=== PATIENT | female | born 1935 | race Caucasian/White ===

== ENCOUNTER → 2016-11-06 | Outpatient (CLI) | payer MEDICARE, OTHER ==
[~2016-11-06] MED LIST: ACET325T9 PO; BENZ9.352 MM; CHOL2000 PO; CHOL4POW2 PO; CLON0.2T PO; CRAN3875 PO; DICL100G7 TP; FENT1PAT21 TD; GABA-585 PO; LISI10TA2 PO; MAG360OR24 PO; MORP60TA PO; ONDA4TAB12 PO; SALI44.3 MM; VITA1CAP11 PO; ZOLE5INF IV; [UNRECOGNIZED DRUG - CODE] PO
--- NOTE | 2016-11-07 03:08 | PAIN ---
DATE OF SERVICE: 11/06/2016 INITIAL CONSULTATION FOR PAIN CLINIC CHIEF COMPLAINT: All over body pain, mostly in the low back and legs as well as the arms. The patient with history of multiple sclerosis and multiple muscular complaints as well. HISTORY OF PRESENT ILLNESS: The patient is an 81-year-old female, presents with history of pain for many years. The patient reports it is mostly in the back and mostly in the legs, also in the arms with burning sensation and pain, worse at night, but also present during the day. The patient has been on MS Contin 60 mg q. 12 hours as well as Duragesic patch she wears 100 mcg every 3 days, also taking Neurontin 100 mg morning and evening. The patient reports she is still having significant pain, especially at night with burning pain, waking her up throughout the night. She has been taking Extra Strength Tylenol through the night, but does not decrease her pain. To a significant extent, she is losing sleep and reports that she is quite frustrated that the pain is not relieved. The patient reports it is a constant, sharp, stabbing, shooting, throbbing, radiating with numbness and tingling, cramping, aching, burning, worse at night, waking herself from sleep at least 5 times at night. The patient reports that she is having difficulty with ambulation as well secondary to the pain, but also from multiple sclerosis etiologies. She uses a scooter, walker, or wheelchair and is in a wheelchair today. She has had physical therapy. She is also doing exercises currently as the physical therapy has done currently as well. It helps keep her mobile she feels, but does not decrease the pain significantly. The patient reports her disability rating from 0 to 10, is a 7 with self-care and recreational factors, and a 10 with life support activities, especially sleeping. The patient reports she avoids social activity because of the pain as well. PAST MEDICAL HISTORY: Significant for hypertension, cataracts, diverticulosis, dysphasia, multiple sclerosis, restless legs syndrome, osteoporosis. PAST SURGICAL HISTORY: Previous surgeries include lumbar surgery. She is unsure of the dates. CURRENT MEDICATIONS: Extensive. The patient does have a complete list in her chart which is well documented. Significant pain medications are MS Contin at 60 mg twice daily, fentanyl patch 100 mcg q. 72 hours, Neurontin 100 mg q. 12 hours, Voltaren gel as necessary ____ times daily, Tylenol Extra Strength 500 mg 2 p.r.n. FAMILY HISTORY: Significant for pancreatic cancers. SOCIAL HISTORY: The patient does not drink alcohol, does not smoke, and does not use any illegal or illicit drugs or other substances. The patient has a sister who lives at the [facility] in [place], [place] currently. REVIEW OF SYSTEMS: The patient's review of systems is positive for those items mentioned in history of present illness. All systems reviewed and otherwise negative. It is complete, full and well documented on the patient's chart. PHYSICAL EXAMINATION: VITAL SIGNS: Today, the blood pressure is 119/59, pulse 74, respirations 18, temperature 97.8 degrees Fahrenheit, height is 61 inches, weighs 126 pounds. GENERAL: The patient is awake, alert, oriented, appropriate, very pleasant demeanor. HEENT: Shows normocephalic, atraumatic. Extraocular movements are intact, symmetrical. The patient is wearing eyeglasses. Oral cavity: Mucous membranes are moist and pink. Dentition is intact. NECK: Shows anterior throat supple without palpable lymphadenopathy noted. Swallow reflex is symmetrical. Neck shows good rotational motion both laterally as well as extension and flexion without significant difficulty. CHEST: Shows normal on inspection. Breath sounds are clear to auscultation bilaterally. HEART: Shows S1 and S2 clear. ABDOMEN: Soft, nontender, nondistended. No palpable organomegaly is noted. No rebound or guarding demonstrated. BACK: The patient's back shows spine grossly midline. Slight exaggeration of thoracic kyphosis and some flattening of lumbar lordotic curvature. Lumbar paraspinous muscle shows some moderate tenderness with palpation bilaterally throughout the upper, middle and lower distribution of paraspinous muscles, but without radiation. ____ significant tenderness with rotation greater than 10 degrees right and left as well as extension greater than 10 degrees, forward flexion at about 45 degrees without significant pain reported. No tenderness over the sacrum or sacroiliac regions. Lower extremities show deep tendon reflexes at 1+ and the patellar and tendo calcaneus tendons are equal. Motor exam is approximately 4 on a scale of 5 with dorsiflexion and extension. Quadriceps and hamstring flexion is about 3 on a scale of 5, but is symmetrical bilaterally with the lower extremities. Peripheral pulses are 1+ posterior tibial and dorsalis pedis pulses. No peripheral edema is noted. No clubbing, no cyanosis. Lower extremities are warm and dry to touch, equal in color and appearance. Upper extremities show deep tendon reflexes 2+ in the biceps and triceps tendons. Motor exam is strong with 5/5 supervisor mapping strength. Biceps and triceps flexion approximately 4/5, but equal and symmetrical. The patient is able to stand, has difficulty rising from a sitting position, is indeed in a wheelchair on initial presentation today. The patient has significant difficulty, however, ambulating and she has a walker which is attached to the back for her wheelchair that she carries with her. She dependent on this ____ has a significant shuffling gait. IMPRESSION: This is an 81-year-old female with: 1. Long history of multiple sclerosis related pain, also previous lumbar surgery and radicular qualities in some of the pain in her lower extremities as well. 2. Medication management as noted. 3. Multiple sclerosis. 4. Hypertension. PLAN: Options were discussed with the patient at length including medication management and we will change her MS Contin from 60 mg. We will add 15 mg to make a total of 75 mg q. 12 hours, maintain her Duragesic patch at 100 mcg q. 72 hours, add hydrocodone at 5 mg to take while awake on a q. 4-6 hours p.r.n. basis, also increased Neurontin to 200 mg in morning and afternoon and then 300 mg at night to see if this may help with some of her neuropathic pain. The patient will follow up in approximately 1 month or sooner as necessary, was given instruction as well as side effects to be aware with the medications. Note was given to the [facility] as well describing in detail the changes in medication regimen. SASCHA LUND MD DR: HAILEE/milton JOB#: [id number] / [id number] ecc , Dr. Hidalgo
== END | disposition home or self-care (01) ==
LOC: PNCL 09:34
PROVIDERS: ATTEND Anesthesiology
DX: M54.5 Low back pain (principal); G35 Multiple sclerosis
CPT/HCPCS: G0463

== ENCOUNTER → 2016-12-12 | Outpatient (CLI) | payer MEDICARE, OTHER ==
[~2016-12-12] MED LIST changes: +GABA-587 PO; +MORP15TA3 PO
--- NOTE | 2016-12-13 03:57 | PAIN ---
DATE OF SERVICE: DIAGNOSES: 1. Multiple sclerosis related pain. 2. Lumbar radiculopathy with post-lumbar laminectomy syndrome. HISTORY OF PRESENT ILLNESS: The patient is an 81-year-old female who returns for followup status post medication management. On her last visit, we had changed her MS Contin from 60 mg to 75 mg with 60 and 15 mg put together maintaining her Duragesic patch and also had added hydrocodone for breakthrough pain and increased her gabapentin from 100-200 during the day, in the morning and afternoon and 300 at night. The patient reports that her pain during the day is much better, about 4 on a scale of 10, but at night, it can be as high as a 10 on a scale of 10. She is still waking at least 2-3 times at night with burning pain in the bilateral lower extremities, mostly in the thighs, which she reports is less frequent than she had, but still significant pain at night. The patient reports ____ from 4-5 on a scale of 10, to 10 at night with burning and aching pain in the leg itself, some in the bender machine as well, but mostly worse in the evening and at night. The patient reports otherwise no side effects with the medications and is doing well, tolerating them. The pain medication seems to be well tolerated. She reports no side effects from that and no constipation, no itching, nausea, vomiting or memory loss and her nurses provided some notes as well, reflecting this also. PHYSICAL EXAMINATION: VITAL SIGNS: The patient on physical exam shows blood pressure 118/51, pulse 71, respirations 18, and temperature is 98.1 degrees Fahrenheit. GENERAL: The patient is awake, alert, oriented, appropriate, very pleasant demeanor. HEENT: Shows normocephalic and atraumatic. Extraocular movements are intact, symmetrical. Oral cavity, mucous membranes moist and pink. Dentition is intact. NECK: Shows anterior throat supple. CHEST: Shows breath sounds clear to auscultation bilaterally. HEART: Shows S1 and S2 clear. No murmurs auscultated. ABDOMEN: Soft, nontender, and nondistended. No palpable organomegaly is noted. BACK: Shows spine grossly midline, some flattening of lumbar lordotic curvature and some mild increase in thoracic kyphotic curvature. Well healed surgical scar is noted in the lumbar distribution. EXTREMITIES: Lower extremities showed deep tendon reflexes 1+ in the patellar tendons. Motor exam is approximately 4 on a scale of 5, but is equal and symmetrical with dorsiflexion, extension, quadriceps and hamstring flexion. PLAN: Options were discussed with the patient and the patient's old chart was reviewed as her current medication regimen updated, current review of systems updated today as well and we will recommend changing the Neurontin to 200 mg every morning and afternoon and 400 mg at night, also maintain MS Contin at 75 mg as combination 60 mg plus 15 mg tablet at night to maintain her Duragesic patch and maintain the hydrocodone, which will be taken about an hour prior to her MS Contin dose at night, which may help her for some better sleep as well. The patient is willing to try this, would like to increase the gabapentin as well. Notes were given to her nursing care facility and the patient will follow up in approximately 4 weeks or sooner if necessary. The patient was given instruction as well as side effects to be aware with the medications as well as activity level during the day ____ she can tolerate it and follow up as scheduled. SASCHA LUND MD DR: HAILEE/milton JOB#: [id number] / [id number]
== END | disposition home or self-care (01) ==
LOC: PNCL 09:27
PROVIDERS: ATTEND Anesthesiology
DX: M54.16 Radiculopathy, lumbar region (principal); M96.1 Postlaminectomy syndrome, not elsewhere classified; G35 Multiple sclerosis
CPT/HCPCS: G0463

== ENCOUNTER → 2017-01-05 | Outpatient (CLI) | payer MEDICARE, OTHER ==
--- NOTE | 2017-01-05 22:40 | PN ---
DATE: 01/05/2017 DIAGNOSES: 1. Multiple sclerosis related pain. 2. Lumbar radiculopathy with post-lumbar laminectomy syndrome. HISTORY OF PRESENT ILLNESS: The patient is an 81-year-old female who returns for followup status post medication management with both MS Contin, also hydrocodone and Neurontin. We have been altering her doses to some extent, trying to get her some better sleep as she has been having some significant pain at night. The patient returns today reporting that she is doing much better with about 80% improvement on her estimation about pain in the back and lower extremities, again much better at night, she is sleeping better through the night, not consistently through the night, but she is not awakening in pain ____ crying anymore, she reports and she is very pleased with this. The patient reports that the Neurontin level, higher at night, seems to be helping her sleep as well and the medications of MS Contin increase seem to help also. The patient reports she is having some abdominal pain and cramping, seems to be associated perhaps with some coffee consumption and we will try and have her decrease that as well as change decaffeinated coffee and see if this helps her abdominal cramping. This gets better when she eats a meal. The patient reports otherwise her pain is 6 on a scale of 10. No new motor or sensory deficits, no side effects with the medications. PHYSICAL EXAMINATION: VITAL SIGNS: The patient's blood pressure is 83/35, pulse is 83, respirations are 18, temperature 97.8 degrees Fahrenheit, and weight is 119 pounds. GENERAL: The patient is awake, alert, oriented, appropriate, very pleasant demeanor sitting upright in her wheelchair. HEENT: Head shows normocephalic and atraumatic. The patient wears eye glasses. Extraocular movements are intact and symmetrical. Oral cavity, mucous membranes moist and pink. NECK: Shows anterior throat supple without palpable lymphadenopathy noted. Swallow reflex is symmetrical. CHEST: Shows normal on inspection. Breath sounds clear to auscultation bilaterally. HEART: Shows S1 and S2 clear. ABDOMEN: Soft, nontender, and nondistended. No palpable organomegaly is noted. No rebound or guarding demonstrated. BACK: The patient's back shows spine grossly midline. Well healed surgical scar is noted in the lumbar distribution with some flattening of lumbar distribution curvature. Lumbar paraspinous muscle shows some moderate tenderness with palpation bilaterally but without radiation. EXTREMITIES: Lower extremities showed deep tendon reflexes 1+ in the patellar and tendo calcaneus tendons. Motor exam is approximately 4 on a scale of 5, but symmetrical with quadriceps, hamstrings, dorsiflexion and extension bilaterally. Options were discussed with the patient and the patient's old chart was reviewed as her current medication regimen updated. Current review of systems updated today as well. We will change hydrocodone to 7.5 mg from 5 mg, maintain the MS Contin at 75 mg total with combination 60 mg plus 15 mg as prescribed, also maintain her gabapentin at 200 mg in morning and afternoon and 400 mg at night and again change the coffee to decaffeinated status to see if this may help some of her abdominal cramping that she is having around mealtimes. The patient will follow up in approximately 4 weeks, was counseled as to medication regimen as well as side effects to be aware of, as well as her impregnator helper who accompanied her to visit today as well. SASCHA LUND MD DR: HAILEE/milton JOB#: [id number] / [id number]
== END | disposition home or self-care (01) ==
LOC: PNCL 09:30
PROVIDERS: ATTEND Anesthesiology
DX: G35 Multiple sclerosis (principal); M54.16 Radiculopathy, lumbar region; M96.1 Postlaminectomy syndrome, not elsewhere classified
CPT/HCPCS: G0463

== ENCOUNTER → 2017-02-02 | Outpatient (CLI) | payer MEDICARE, OTHER ==
[~2017-02-02] MED LIST changes: +BUPIVACAINE MPF 0.25% 10 ML VIAL. ONE; +HYDR-2762 PO; +methylPREDNISolone ACETATE 40 MG/ML VIAL. ONE
--- NOTE | 2017-02-03 02:31 | PN ---
DATE: 02/02/2017 PROGRESS NOTE FOR PAIN CLINIC DIAGNOSES: 1. Post-lumbar laminectomy syndrome with lumbar radiculopathy. 2. Multiple sclerosis related pain. HISTORY OF PRESENT ILLNESS: The patient is an 81-year-old female who returns for followup status post medication management with both MS Contin and hydrocodone, also the patient is taking gabapentin. We had slowly titrated this up to a level where she is tolerating this taking 200 mg in the morning and at noon and 400 mg at night as she was having some significant pain complaints waking her from sleep. This is going on for several months. The patient is now taking 2 tablets of gabapentin in the morning and noon and 4 tablets to make 400 mg at night, reports she is sleeping much better, does not remember having any pain during the night or awakening her from sleep. She reports she still gets up and uses the bathroom about 2-3 times a night and does not recall having pain when she is doing this or recall having been up to the bathroom sometimes at all. The patient reports that during the day though, she is alert, she is awake, she is not tired or drowsy and feels very alert and appropriate. The patient is also taking MS Contin, a combination of 60 and 15 mg, together makes 75, take this q. 12 hours and hydrocodone 7.5 mg, which we had increased from 5 mg on her previous visit q.4 hours on a p.r.n. basis and is taking this about 3 times a day on average. The patient reports no new motor or sensory deficits, no new side effects with the medication, no constipation, nausea, vomiting, itching or drowsiness with her pain medication or gabapentin at this time. The patient reports still some pain in the low back and the bilateral anterior thighs, but only generally with standing or walking. She is using a motorized wheelchair to get around most times. PHYSICAL EXAMINATION: VITAL SIGNS: Today, blood pressure is 142/68, pulse 76, respirations 20, temperature 97.8 degrees Fahrenheit. GENERAL: The patient is awake, alert, oriented, appropriate, has a very pleasant demeanor. HEENT: Shows normocephalic, atraumatic. The patient wears eyeglasses. Extraocular movements are intact and symmetrical. Oral cavity, mucous membranes are moist and pink. NECK: Shows anterior throat supple. Swallow reflex is symmetrical. CHEST: Shows normal on inspection. Breath sounds are clear to auscultation bilaterally. HEART: Shows S1 and S2 clear. No murmurs auscultated. ABDOMEN: Soft, nontender, nondistended. BACK: Shows spine grossly in the midline, well-healed surgical scar is noted in the lumbar distribution with some flattening of lumbar lordotic curvature and some moderate tenderness with palpation in the lower lumbar distribution bilaterally, but only diffusely without radiation. The patient's upper extremities show significant tenderness and she complains of pain in the area on the lateral and posterior aspect of the upper arm with abduction of the shoulder most noticeably and with posterior displacement of the shoulder. On inspection shows normal muscle girth with palpation in the inferior aspect and distal aspect of the insertion of the deltoid on to the humerus. In the lateral aspect of the deltoid and slightly into the posterior deltoid she has very firm, very tender area on the insertion site itself without any palpable masses or discoloration, no fluctuance, no other abnormalities. Left side is normal without pain with palpation in any of the deltoid regions. Neck shows full rotational motion with passive rotational motion of the right shoulder. The patient has very little pain at all with active rotation; however, with abduction at 90 degrees and posterior displacement, has significant pain in the same region consistent with a bursitis type pain in this region. Options were discussed with the patient. The patient's old chart was reviewed as her current medication regimen and updated. Current review of systems updated today as well. We will proceed with a trigger point injection in the right lateral inferior deltoid. Risks were discussed including but not limited to bleeding, infection, possibility of intravascular injection sequelae, spread of local anesthetic and numbness, side effects of steroid medication and poor results regarding pain control. The patient understands and wishes to proceed. The patient will return to the clinic in approximately 2 months or sooner if necessary. Given refill prescriptions for MS Contin, hydrocodone as well as gabapentin, all again with instructions, side effects to be aware of. Also, note written for the patient's living facility regarding her visit today and her medication regimen and this was discussed with her caregiver who was present at her visit today as well. DIAGNOSIS: Myofascial pain, right lateral deltoid. PROCEDURE: Trigger point injection, right lateral deltoid. Medications 2 mL of 0.25% bupivacaine and 40 mg Depo-Medrol total under sterile prep and drape using local anesthetic. CONDITION AT DISCHARGE: Stable. The patient tolerated the procedure well, had no complications. SASCHA LUND MD DR: HAILEE/milton JOB#: [id number] / [id number]
== END | disposition home or self-care (01) ==
LOC: PNCL 10:43
PROVIDERS: ATTEND Anesthesiology
DX: M79.1 Myalgia (principal)
CPT/HCPCS: 20552; J1030; J3490

== ENCOUNTER → 2017-05-22 | Outpatient (CLI) | payer MEDICARE, OTHER ==
[~2017-05-22] MED LIST changes: +DICL100G18 TP; -DICL100G7 TP
--- NOTE | 2017-05-22 12:12 | PAIN ---
DATE OF SERVICE: 05/22/2017 PROGRESS NOTE FOR PAIN CLINIC DIAGNOSES: 1. Multiple sclerosis related pain. 2. Lumbar radiculopathy with post-lumbar laminectomy syndrome. 3. Myofascial pain. HISTORY OF PRESENT ILLNESS: The patient is an 81-year-old female who returns for followup status post medication management with both MS Contin and hydrocodone and also gabapentin. The patient reports she is doing very well with this, has been sleeping much better at night without the pain that she has had previously. Her chief complaint is pain in the right shoulder, she had previously as well, which was much better after trigger point injection in January of this year, but is returning now. The patient is unsure why it is returning. She is right handed, does not feel that she has her arm or strained it or lifted anything heavy etc. The patient reports no new motor or sensory deficits. Again, no side effects with the medication. Reports about a 75% to 80% improvement with the medications alone. The patient rates her pain at a 10 on a scale of 10, it is worse in the right shoulder, otherwise it is a 5-6 on a scale of 10, it is burning, sharp, aching in the low back and bilateral lower extremities, but again much better with her medication. PHYSICAL EXAMINATION: VITAL SIGNS: The patient's blood pressure 105/60, pulse 67, respirations 18, temperature 98.1 degrees Fahrenheit. GENERAL: The patient is awake, alert, oriented, appropriate, very pleasant demeanor. HEENT: Shows normocephalic, atraumatic. The patient wears eyeglasses. Extraocular movements are intact and symmetrical. Oral cavity, mucous membranes are moist and pink. Dentition is intact. NECK: Shows anterior throat supple without palpable lymphadenopathy noted. Swallow reflex is symmetrical. CHEST: Shows normal on inspection. Breath sounds are clear to auscultation bilaterally. HEART: Shows S1 and S2 clear. No murmurs auscultated. ABDOMEN: Soft, nontender, nondistended. No palpable organomegaly noted. No rebound or guarding demonstrated. BACK: Shows spine grossly midline. Normal appearing thoracic kyphosis and flattening of lumbar lordotic curvature. Well-healed surgical scar noted. Lumbar paraspinous muscle shows some mild tenderness with palpation, but only diffusely in the upper, middle and lower distribution of the paraspinous muscles. No tenderness over the sacrum or sacroiliac regions. The patient shows good rotational motion both laterally as well as extension and flexion. EXTREMITIES: The patient's lower extremities showed deep tendon reflexes 1+ in the patellar and tendo calcaneus tendons. Motor exam is approximately 4 on a scale of 5, but equal and symmetrical bilaterally. Upper extremities show tenderness over the right deltoid in the anterior aspect and some in the area of the biceps tendon insertion on the right side, very firm rope-like musculature in the anterior deltoid, not present on the lateral or the posterior deltoid on the right side. The left side is supple without tenderness. The patient shows good pre sales systems engineer strength rated at 5/5 bilaterally as is biceps and triceps flexion with some pain reported with biceps flexion on the right in the shoulder itself anteriorly. Peripheral pulses are 2+ in the radial distribution. No peripheral edema is noted. No clubbing or cyanosis in the upper extremities. Options were discussed with the patient and the patient's old chart was reviewed as her current medication regimen updated. Current review of systems updated today as well. We will proceed with a right-sided deltoid trigger point injection. Risks were discussed including but not limited to bleeding, infection, possibility of intravascular injection sequelae, spread of local anesthetic and numbness, side effects of steroid medication and poor results regarding pain control. The patient understands and wishes to proceed. The patient also given refill prescriptions for MS Contin 60 mg plus 15 to make a total of 75 q. 12 hours, hydrocodone 7.5 mg for breakthrough pain and gabapentin at 400 mg in the evening, 200 mg in the morning and noon. The patient was given instructions as well as side effects to be aware with each of medications. Also gave progress note for patient's [facility] where she resides and her nursing care there with a progress note and instructions with her medications as well. The patient will follow up in approximately 2 months or sooner as necessary, was given instructions as well as side effects to be aware with medications. DIAGNOSIS: Myofascial pain, right deltoid. PROCEDURE: Trigger point injection right anterior deltoid using local anesthetic under sterile prep and drape. MEDICATION INJECTED: A total of 2 mL of 0.25% bupivacaine and 40 mg of Depo-Medrol. CONDITION AT DISCHARGE: Stable. The patient tolerated procedure well, had no complications. SASCHA LUND MD DR: Ciaran JOB#: [id number] / [id number]
== END | disposition home or self-care (01) ==
LOC: PNCL 09:10
PROVIDERS: ATTEND Anesthesiology
DX: M79.1 Myalgia (principal); M54.16 Radiculopathy, lumbar region; M96.1 Postlaminectomy syndrome, not elsewhere classified; Z88.2 Allergy status to sulfonamides
CPT/HCPCS: 20552; J1030; J3490

== ENCOUNTER → 2017-07-17 | Outpatient (CLI) | payer MEDICARE, OTHER ==
[~2017-07-17] MED LIST changes: -BUPIVACAINE MPF 0.25% 10 ML VIAL. ONE; -methylPREDNISolone ACETATE 40 MG/ML VIAL. ONE
--- NOTE | 2017-07-17 12:51 | PAIN ---
DATE OF SERVICE: 07/17/2017 DIAGNOSES: 1. Multiple sclerosis-related pain. 2. Lumbar radiculopathy with post-lumbar laminectomy syndrome. 3. Myofascial pain. HISTORY OF PRESENT ILLNESS: The patient is an 81-year-old female who returns for followup status post medication management with both MS Contin 60 and 15 mg to make 75 mg total with hydrocodone 7.5 mg for breakthrough pain. The patient is also wearing a 100 mcg fentanyl patch every 3 days. The patient returns today reporting that she still has some significant pain in the low back and bilateral lower extremities, also in the right shoulder. We had performed a trigger point on the deltoid on the right side last time and she reports this helped temporarily, but the pain returned fairly quickly. The patient reports now the pain is mostly in the mid back, low back and leg. It is sharp, burning, cramping, on and off, rated as 7 on a scale of 10. It is worst as 6 on its least. The patient reports it awakens her from sleep occasionally, but not every night. She can usually reposition or get out of bed and change positions. She is in an assisted living facility, has her nurse come and help her in the evenings to reposition and she reports she is able to get back to sleep after this. The patient reports doing well with her medications. No significant side effects. With about a 70%-75% improvement overall with some dry mouth recently, but no constipation, no dizziness, itching or nausea reported as well. PAST MEDICAL HISTORY: Significant for hypertension, cataracts, diverticulosis, multiple sclerosis, restless leg syndrome, dysphagia, osteoporosis. PREVIOUS SURGERIES: Include lumbar laminectomy only. MEDICATIONS: The patient's medications were reviewed and updated today. ALLERGIES: The patient is allergic to SULFA. FAMILY HISTORY: Significant for pancreatic cancer. SOCIAL HISTORY: Significant for no smoking, no drinking. The patient lives in [facility] in [place], [place] currently, with assisted living arrangements. PHYSICAL EXAMINATION: VITAL SIGNS: Today, blood pressure 124/45, pulse 63, respirations 16, temperature 98.1 degrees Fahrenheit. Height is 5 feet 3 inches, weight is 131 pounds. GENERAL: The patient is awake, alert, oriented, appropriate, very pleasant demeanor. HEENT: Shows normocephalic, atraumatic. Extraocular movements are intact, symmetrical. Oral cavity, mucous membranes are moist and pink. Dentition is intact. NECK: Shows anterior throat supple without palpable lymphadenopathy noted. Swallow reflex is symmetrical. CHEST: Shows normal on inspection. Breath sounds clear to auscultation bilaterally. HEART: Shows S1 and S2 clear. No murmurs auscultated. ABDOMEN: Soft, nontender, nondistended. No palpable organomegaly. No rebound or guarding demonstrated. BACK: Shows grossly midline spine with a well-healed surgical scar noted in the lumbar distribution in midline. There is some mild flattening of lumbar lordotic curvature. Thoracic kyphotic curvature is normal in appearance, slightly exaggerated. Lumbar paraspinous muscle shows some moderate tenderness with palpation in the upper, middle and lower distribution of paraspinous muscles, but only diffusely and without specific radiation. No tenderness over the spinous processes, sacrum or sacroiliac regions. The patient shows good rotational motion of lumbar spine, both laterally as well as extension and flexion without significant difficulty. The patient's upper extremities show some mild tenderness over the anterior right deltoid, but without significant palpable trigger point region on exam today without radiation. Options were discussed with the patient. At this time, the patient's old chart was reviewed. Her current medication regimen updated. Current review of systems updated today as well. We will refill the patient's medications, MS Contin, both 60+15 mg to make 75 mg total, also hydrocodone 7.5 mg for breakthrough pain. Also, try Medrol Dosepak in the meantime. She will continue with gabapentin as well. The patient was given 2-month prescription refills for each of these with instructions, side effects to be aware of these medications discussed with both she and her caregiver, who is with her today as well. The patient was given written progress note reports for her assisted living facility, also with the medications to be taken, the Medrol Dosepak to be taken with food as well. The patient will return to clinic in approximately 2 months or sooner if necessary. SASCHA LUND MD DR: HAILEE/milton JOB#: [id number] / [id number]
== END | disposition home or self-care (01) ==
LOC: PNCL 09:35
PROVIDERS: ATTEND Anesthesiology
DX: M54.16 Radiculopathy, lumbar region (principal); I10 Essential (primary) hypertension; M81.0 Age-related osteoporosis without current pathological fracture; G35 Multiple sclerosis; G25.81 Restless legs syndrome; M25.511 Pain in right shoulder; M79.1 Myalgia; R68.2 Dry mouth, unspecified
CPT/HCPCS: G0463

== ENCOUNTER → 2017-09-11 | Outpatient (CLI) | payer MEDICARE, OTHER ==
--- NOTE | 2017-09-11 23:17 | PAIN ---
DATE OF SERVICE: 09/11/2017 PROGRESS NOTE FOR PAIN CLINIC DIAGNOSES: 1. Multiple sclerosis radial pain. 2. Lumbar radiculopathy with post-lumbar laminectomy syndrome. 3. Myofascial pain. HISTORY OF PRESENT ILLNESS: The patient is an 82-year-old female who returns for followup status post medication management with both Duragesic patches, MS Contin and hydrocodone for breakthrough pain, also gabapentin, which reports she is doing very well with each of these, except for the gabapentin she feels that the morning dose is making her very groggy and less sharp during the morning hours. The patient was speaking to her sister on the phone and she reported that she was not responding well to her questions, not answering them quickly or sharply and feels that the gabapentin has been responsible for this only in the mornings. The patient reports otherwise doing fairly well. Still has some legs aching worse at night, but is sleeping through the night now, but according to her reports still some pain in the back of the legs, which is manageable and fairly well controlled with medications about 80% improvement at this time. The patient reports no side effects from the medications. She reports pain at 8 on a scale of 10 at its worse, 5 on average, 5 at its least, and is a 5 today. The patient reports it is off and on over the back and the legs, aching, sharp and burning, but again off and on without significant debilitating pain. The patient is using a motorized scooter to get around, which helps significantly as well as walking and standing tends to exacerbate the pain, better with sitting or lying down again as noted. PHYSICAL EXAMINATION: VITAL SIGNS: The patient's blood pressure 119/49, pulse 70, respirations 18, temperature 97.9 degrees Fahrenheit, height is 5 feet 3 inches. GENERAL: The patient is alert and oriented, appropriate, is a very pleasant demeanor. HEENT: Shows normocephalic, atraumatic. Extraocular movements are intact and symmetrical. Oral cavity shows mucous membranes are moist and pink. Dentition is intact. NECK: Shows anterior throat supple without palpable lymphadenopathy noted. Neck shows full rotation motion of cervical spine without difficult or tenderness including lateral rotation past 45 degrees as well as extension and full forward flexion. CHEST: Shows normal on inspection. Breath sounds are clear to auscultation bilaterally. HEART: Shows S1 and S2 clear. No murmurs auscultated. ABDOMEN: Soft, nontender, nondistended. No palpable organomegaly. No rebound, guarding demonstrated. BACK: Shows spine grossly in the midline. Slight exaggeration of thoracic kyphosis and mild flattening of lumbar lordotic curvature. There is well healed surgical scar is noted in the lumbar distribution. Lumbar paraspinous musculature shows some moderate tenderness to palpation, but only diffusely in the middle, upper and lower distribution of paraspinous muscles, but appears symmetrical. No evidence of atrophy, hypertrophy. The patient shows good rotational motion both laterally as well as an extensive flexion without significant pain reported. LOWER EXTREMITIES: Show deep tendon reflexes at 1+ in the patellar and tendo-calcaneus tendons are equal. Motor exam is approximately 4 on the scale of 5, but strong with dorsiflexion, extension, quadriceps and hamstring flexion and symmetrical. Peripheral pulses are at 1+ posterior tibial. No peripheral edema is noted bilaterally. Options were discussed with the patient. The patient's old chart was reviewed as her current medication regimen and updated. Current review of systems is updated today as well. We will refill the patient's medications, MS Contin at 60 mg plus 15 mg for a total of 75 mg q. 12 hours, also we will renew the patient's hydrocodone for breakthrough pain and gabapentin. We will have only at bedtime 400 mg and eliminate the morning dose of 100 mg to see if this helps her mental sharpness in the mornings. The patient was given instructions as well as side effects to be aware of each of medication. The patient had appropriate K-TRACS reporting as well as appropriate urinalysis today. We will renew the patient's narcotic contract today as well as urinalysis today for routine screening. The patient will return to the clinic in approximately 2 months or sooner as necessary. She was given 2 months of prescription with instructions and side effects to be aware of each of the medications and discussed. SASCHA LUND MD DR: HAILEE/milton JOB#: [id number] / [id number]
== END | disposition home or self-care (01) ==
LOC: PNCL 09:35
PROVIDERS: ATTEND Anesthesiology
DX: M54.16 Radiculopathy, lumbar region (principal); G35 Multiple sclerosis
CPT/HCPCS: G0463

== ENCOUNTER → 2017-12-25 | Outpatient (CLI) | payer MEDICARE, OTHER | END | disposition home or self-care (01) | LOC: PNCL 10:01 | DX: M54.16 Radiculopathy, lumbar region (principal); G35 Multiple sclerosis | CPT/HCPCS: G0463 ==

== ENCOUNTER → 2018-02-19 | Outpatient (CLI) | payer MEDICARE, OTHER | END | disposition home or self-care (01) | LOC: PNCL 10:36 | DX: M54.16 Radiculopathy, lumbar region (principal); M79.1 Myalgia; G35 Multiple sclerosis | CPT/HCPCS: G0463 ==

== ENCOUNTER → 2018-04-16 | Outpatient (CLI) | payer MEDICARE, OTHER | END | disposition home or self-care (01) | LOC: PNCL 10:58 | DX: G35 Multiple sclerosis (principal); M54.16 Radiculopathy, lumbar region; M79.1 Myalgia | CPT/HCPCS: G0463 ==

== ENCOUNTER → 2018-06-12 | Outpatient (CLI) | payer MEDICARE, OTHER ==
[~2018-06-12] MED LIST changes: +GABA600T2 PO
--- NOTE | 2018-06-13 01:48 | PAIN ---
DATE OF SERVICE: 06/12/2018 PROGRESS NOTE FOR PAIN CLINIC DIAGNOSES: 1. Multiple sclerosis related pain. 2. Lumbar radiculopathy with post lumbar laminectomy syndrome. 3. Myofascial pain. HISTORY OF PRESENT ILLNESS: The patient is an 82-year-old female who returns for followup status post medication management with both MS Contin 15 and 60 mg to make 75 q. 12 hours, also gabapentin, which we increased to 600 mg at bedtime as well as Flexeril 10 mg at bedtime. The patient is also using Voltaren gel on her feet, which she reports today is doing much better. The patient reports she is sleeping much better, is sleeping through the night, is very pleased with legs no longer keeping her awake. She is waking up feeling refreshed and feels that she is increasing her activity during the day as well. The patient reports no specific side effects. No hangover effect with the gabapentin or the Flexeril, and no side effects with the medications. No constipation, itching, nausea or excessive sedation. The patient reports no changes, is very pleased with her ability to sleep better through the night. The patient reports her pain is mainly in the low back into the legs, sharp and in the feet, but the Voltaren gel is helping this quite a bit. The patient reports her pain is a 7 on a scale of 10 at its worst, 5 on average, 4 at its least and is a 4 today. The patient reports no new other complaints. PHYSICAL EXAMINATION: VITAL SIGNS: The patient's blood pressure 123/57, pulse 75, respirations 16, temperature 98.1 degrees Fahrenheit. Weight is 134 pounds. GENERAL: The patient is awake, alert, oriented, appropriate, very pleasant demeanor. HEENT: Head shows normocephalic, atraumatic. The patient wears eye glasses. Extraocular movements are intact, symmetrical. Oral cavity: Mucous membranes moist and pink. Dentition is intact. NECK: Shows anterior throat supple without palpable lymphadenopathy noted. Swallow reflex is symmetrical. CHEST: Shows normal with inspection. Breath sounds clear to auscultation bilaterally. HEART: Shows S1, S2 clear. No murmurs auscultated. ABDOMEN: Soft, nontender, nondistended. No palpable organomegaly. No rebound or guarding demonstrated. BACK: Shows spine grossly in the midline. Slight exaggeration of thoracic kyphosis and flattening of lumbar lordotic curvature with well-healed surgical scar noted. Lumbar paraspinous muscle shows symmetrical on inspection, with palpation shows some mild tenderness, but only diffusely throughout the upper, middle and lower distribution of paraspinous muscles, but is symmetrical without radiation. EXTREMITIES: Lower extremities show deep tendon reflexes 1+ in the patellar and tendo calcaneus tendons. Motor exam is approximately 4 on a scale of 5 and equal and symmetrical bilaterally. Peripheral pulses are 1+ posterior tibia. No peripheral edema is noted. Options were discussed with the patient. The patient's old chart was reviewed as her current medication regimen updated. Current review of systems updated today as well. We will refill the patient's gabapentin at 600 mg at bedtime, also MS Contin at 15 plus 60 mg to make 75 q. 12 hours, Flexeril 10 mg at bedtime as well as Voltaren gel to the patient's ankles at bedtime. The patient was given instruction as well as side effects to be aware of and will follow up in approximately 2 months. The patient had appropriate K-TRACS reporting as well as appropriate urinalysis to date and we will give her a 2-month refill prescription with instructions written to her [facility] as well. The patient will follow up in approximately 2 months or sooner if necessary. SASCHA LUND MD DR: HAILEE/milton JOB#: [id number] / [id number]
== END | disposition home or self-care (01) ==
LOC: PNCL 10:49
PROVIDERS: ATTEND Anesthesiology
DX: G35 Multiple sclerosis (principal); M54.16 Radiculopathy, lumbar region
CPT/HCPCS: G0463

== ENCOUNTER → 2018-08-07 | Outpatient (CLI) | payer MEDICARE, OTHER ==
--- NOTE | 2018-08-07 19:20 | PAIN ---
DATE OF SERVICE: 08/07/2018 DIAGNOSES: 1. Multiple sclerosis related pain. 2. Lumbar radiculopathy with post lumbar laminectomy syndrome and myofascial pain. HISTORY OF PRESENT ILLNESS: The patient is an 83-year-old female who returns for followup status post medication management with both MS Contin, both 15 and 60 mg, that is to make 75 mg twice daily; also hydrocodone for breakthrough pain, gabapentin at night as well as Voltaren gel and Flexeril at night. The patient reports she is doing fairly well on this. She has been sleeping much better at night, reports her feet are still giving some trouble. They do not always get the gel on her feet at night before she goes to bed as she is in an assisted living facility. The patient reports otherwise she is doing quite well. She is feeling better and the feet are doing better as well. The patient reports she is still awake in the morning. When she gets up, she is not too groggy. By breakfast, she can remember the rest of her day and everything is very clear. Has good days and bad days, but mainly doing well and sleeps fairly well at night, does not usually awaken her from sleep as it did with the pain in her legs in the past. The patient reports the pain is a 6 on a scale 10 at its worst, 5 on average, 2 at its least and is a 2 today. The patient is reporting no new motor or sensory deficits, no new changes, no side effects with the medication. The patient reports approximately 80% improvement with medication and no side effects as well. PHYSICAL EXAMINATION: VITAL SIGNS: Today, the patient's blood pressure 112/57, pulse 78, respirations 20, temperature 98.0 degrees Fahrenheit. GENERAL: The patient is awake, alert, oriented, appropriate, very pleasant demeanor. The patient is seated upright in her wheelchair. HEENT: Shows normocephalic, atraumatic. The patient wears eyeglasses. Extraocular movements intact and symmetrical. Oral cavity: Mucous membranes moist and pink. Dentition is intact. NECK: Shows anterior throat supple without palpable lymphadenopathy noted. Swallow reflex is symmetrical. CHEST: Shows normal on inspection. Breath sounds are clear to auscultation bilaterally. HEART: Shows S1, S2 clear. No murmurs auscultated. ABDOMEN: Soft, nontender, nondistended. No palpable organomegaly is noted. No rebound or guarding demonstrated. BACK: Shows spine grossly in the midline. Well healed surgical scar is noted in the lumbar distribution with some flattening of lumbar lordotic curvature. Thoracic kyphosis is slightly exaggerated with normal cervical lordotic curvature. Paraspinous muscle shows symmetrical on inspection with some moderate palpation in the lumbar paraspinous musculature throughout the upper, middle, lower distribution, but patient has good rotational motion both laterally as well as extension and flexion without significant difficulty. EXTREMITIES: The patient's lower extremities show deep tendon reflexes at 1+ in the patellar and tendo calcaneus tendons. Motor exam is approximately 4 on a scale of 5, but equal and symmetrical. Peripheral pulses are 1+ posterior tibia. No peripheral edema is noted bilaterally. Options were discussed with the patient. The patient's old chart was reviewed as is her current medication regimen updated. Current review of systems is updated today as well. We will refill the patient's MS Contin as well as gabapentin, hydrocodone, Flexeril and Voltaren gel with instructions and side effects to be aware discussed with the patient as well as her caregiver present with her today and written note for her nursing staff at her assisted facility with instructions. The patient will follow up in approximately 2 months as scheduled. The patient had appropriate K-TRACS reporting as well as appropriate urinalysis to date and we will give her a 2-month prescription of each of the medications. The patient will follow up in approximately 2 months or sooner if necessary. SASCHA LUND MD DR: HAILEE/milton JOB#: [id number] / [id number]
== END | disposition home or self-care (01) ==
LOC: PNCL 10:08
PROVIDERS: ATTEND Anesthesiology
DX: G35 Multiple sclerosis (principal); M54.16 Radiculopathy, lumbar region; M79.18 Myalgia, other site; M96.1 Postlaminectomy syndrome, not elsewhere classified
CPT/HCPCS: G0463

== ENCOUNTER → 2018-10-09 | Outpatient (CLI) | payer MEDICARE, OTHER ==
[~2018-10-09] MED LIST changes: +CYCL10TA2 PO; -GABA-587 PO; +GABA-689 PO; -HYDR-2762 PO; +HYDR-2765 PO; +HYDR-2769 PO; +LEVO125T5 PO
--- NOTE | 2018-10-09 20:08 | PAIN ---
DATE OF SERVICE: 10/09/2018 PROGRESS NOTE FOR PAIN CLINIC DIAGNOSES: 1. Multiple sclerosis related pain. 2. Lumbar radiculopathy with post-lumbar laminectomy syndrome. 3. Myofascial pain. HISTORY OF PRESENT ILLNESS: The patient is an 83-year-old female who returns for followup status post medication management with both MS Contin 60+15 mg for a total of 75 as well as hydrocodone for breakthrough pain. The patient has fentanyl patches as well. The patient reports she is doing very well, is quite stable, is very pleased with her progress. She is sleeping well at night. Has no side effects with the medications. She is alert and awake during the day. Also, we have gabapentin, which she is taking at night only. She was having some sedation with this during the day, but since we have changed to the nighttime only, she is doing very well and sleeping much better. The patient reports her legs are not bothering her during the night, still has some pain during the day in the low back in the lower extremities, but very well managed by her report. The patient reports about 70-80% improvement overall without any significant side effects. The patient reports no new motor or sensory deficits, no bowel or bladder incontinence. She has been increasing her activity as she is fairly sedate. She is in a wheelchair most of the time. She is very comfortable by her report. The patient reports no other changes. Reports her pain is 5 on a scale of 10 at its worst, 3 on average and 3 at its least and is 3 today, which is aching, burning in the feet and the legs, in the low back is dull and aching as well. PHYSICAL EXAMINATION: VITAL SIGNS: The patient's blood pressure is 115/63, pulse 93, respirations 18, temperature is 97.6 degrees Fahrenheit. Height and weight are deferred per her request. GENERAL: The patient is awake, alert, oriented, appropriate, very pleasant demeanor. HEENT: Shows normocephalic, atraumatic. The patient wears eyeglasses. Extraocular movements are intact and symmetrical. Oral cavity: Mucous membranes moist and pink. Dentition is intact. NECK: Shows anterior throat supple without palpable lymphadenopathy noted. Swallow reflex is symmetrical. CHEST: Shows normal with inspection. Breath sounds clear to auscultation bilaterally. HEART: Shows S1, S2 clear. No murmurs auscultated. ABDOMEN: Soft, nontender, nondistended. No palpable organomegaly is noted. No rebound or guarding demonstrated. BACK: Shows spine grossly in the midline. Normal-appearing thoracic kyphosis, slightly exaggerated actually thoracic kyphosis and lumbar lordotic curvature is slightly flattened with some well-healed surgical scarring noted. Lumbar paraspinous muscle shows diffuse tenderness throughout the upper, middle, lower distribution of paraspinous muscles, but without radiation. EXTREMITIES: Lower extremities show deep tendon reflexes 1+ in the patellar and tendo calcaneus tendons. Motor exam is approximately 4 on a scale 5, but equal and symmetrical dorsiflexion, extension, quadriceps and hamstring flexion. Peripheral pulses are 1+ posterior tibia. No peripheral edema is noted bilaterally. Options were discussed with the patient. The patient's old chart was reviewed as her current medication regimen updated. Current review of systems updated today as well. We will refill the patient's medication, MS Contin, both 60 and 15 mg to make 75 q. 12 hours as well as hydrocodone q. 6 hours for breakthrough pain 10 mg, gabapentin 600 mg at bedtime as well as Voltaren gel which she will be using on her feet at night which helps as well. The patient was given instruction as well as side effects to be aware of each of the medications. Also, a note was written for her mother's house where she resides and her transporter was informed of the medications and plan of care as well. The patient will follow up in approximately 2 months. She has had appropriate K-TRACS reporting as well as appropriate urinalysis to date. We will follow up in a 2-month period or sooner if necessary. SASCHA LUND MD DR: HAILEE/milton JOB#: [id number] / [id number]
== END | disposition home or self-care (01) ==
LOC: PNCL 14:56
PROVIDERS: ATTEND Anesthesiology
DX: G35 Multiple sclerosis (principal); M54.16 Radiculopathy, lumbar region; M96.1 Postlaminectomy syndrome, not elsewhere classified; M79.18 Myalgia, other site
CPT/HCPCS: G0463

== ENCOUNTER → 2018-12-12 | Outpatient (CLI) | payer MEDICARE, OTHER ==
[~2018-12-12] MED LIST changes: -GABA600T2 PO; +GABA600T7 PO
--- NOTE | 2018-12-12 15:32 | PAIN ---
DATE OF SERVICE: 12/12/2018 DIAGNOSES: 1. Multiple sclerosis related pain. 2. Lumbar radiculopathy with post-lumbar laminectomy syndrome. 3. Myofascial pain. HISTORY OF PRESENT ILLNESS: The patient is an 83-year-old female who returns for followup status post medication management with both MS Contin, both 60 and 15 mg sizes to make 75 mg q.12h. and also gabapentin at bedtime 600 mg. The patient is taking hydrocodone for breakthrough pain at 10 mg and the Voltaren gel for her feet, which seems to be helping quite a bit with her foot pain at night as well. The patient reports she is doing fairly well, reports she is on a "stable" routine at this time. The patient reports about 75% improvement with medications by her estimation without significant side effects. The patient reports she does have some dizziness, which she has had over the past month or so, mainly when changing positions and mainly when she has been sitting for more than an hour and gets up. We talked about hydration and hopefully, this will take care of the problem. The patient reports the pain is 5 on a scale of 10 at its worst, 5 on average and 5 at its least and is a 5 today. The patient reports no new motor or sensory deficits, no new bowel or bladder incontinence. Reports the pain is sharp, cramping, stabbing in the low back, bilateral lower extremities, more on the right than the left, but also in the bilateral shoulders. The patient reports no new motor or sensory deficits or other complaints. PHYSICAL EXAMINATION: VITAL SIGNS: The patient's blood pressure is 100/52, pulse 85, respirations 18, temperature 97.9 degrees Fahrenheit. GENERAL: The patient is awake, alert, oriented, appropriate, very pleasant demeanor. HEENT: Head shows normocephalic, atraumatic. Extraocular movements intact and symmetrical. Oral cavity: Mucous membranes moist and pink. Dentition is intact. NECK: Shows anterior throat supple without palpable lymphadenopathy noted. Swallow reflex is symmetrical. CHEST: Shows normal on inspection. Breath sounds clear to auscultation bilaterally. HEART: Shows S1, S2 clear. No murmurs auscultated. ABDOMEN: Soft, nontender, nondistended. No palpable organomegaly is noted. No rebound or guarding demonstrated. BACK: Shows spine grossly in the midline. Slight exaggeration of thoracic kyphosis, normal cervical lordotic curvature and some minor flattening of lumbar lordotic curvature. Lumbar paraspinous musculature shows symmetrical on inspection, well-healed surgical scars again noted. With palpation shows some moderate tenderness diffusely throughout the upper, middle and lower distribution of paraspinous muscles, but only very mild and only diffusely without radiation, without atrophy, hypertrophy without trigger points or radiation. The patient has good rotational motion of lumbar spine, both laterally as well as extension and flexion without exacerbation of pain. EXTREMITIES: The patient's lower extremities show deep tendon reflexes 1+ in the patellar and tendo-calcaneus tendons. Motor exam is approximately 4 on a scale of 5, but symmetrical with dorsiflexion, extension bilaterally. Peripheral pulses are 1+. No peripheral edema is noted in the lower extremities. Options were discussed with the patient. The patient's old chart was reviewed as her current medication regimen and updated. Current review of systems is updated today as well. We will refill the patient's medications for a 2-month period. The patient has had appropriate K-TRACS reporting as well as appropriate urinalysis to date. Also discussed hydration issues as the patient reports she is not eating as much as she used to and is not drinking as much water during the day. We discussed this as this might be a suspect for her dizziness as well as some hypotension. The patient understands and voices understanding and agrees. The patient will be given again 2-month prescription. We will follow up in 2 months as scheduled or sooner as necessary. Instructions given to her transport personnel who was present with her as well and written notes for her nursing staff at the [facility] house outlined in the same plan also. SASCHA LUND MD DR: HAILEE/milton JOB#: [id number] / [id number]
== END | disposition home or self-care (01) ==
LOC: PNCL 10:59
PROVIDERS: ATTEND Anesthesiology
DX: M54.16 Radiculopathy, lumbar region (principal); M96.1 Postlaminectomy syndrome, not elsewhere classified; G35 Multiple sclerosis; M79.18 Myalgia, other site
CPT/HCPCS: G0463

== ENCOUNTER → 2019-02-06 | Outpatient (CLI) | payer MEDICARE, OTHER ==
--- NOTE | 2019-02-07 02:30 | PAIN ---
DATE OF SERVICE: 02/06/2019 PROGRESS NOTE FOR PAIN CLINIC DIAGNOSES: 1. Multiple sclerosis related pain. 2. Lumbar radiculopathy with post-lumbar laminectomy syndrome. 3. Myofascial pain. HISTORY OF PRESENT ILLNESS: The patient is an 83-year-old female who returns for followup status post medication management with both Duragesic patches, MS Contin and Voltaren gel as well as Flexeril and gabapentin. The patient reports that she feels that she is doing well and she is sleeping better at night. Reports she gets around daily with greater ease and comfort and reports no significant side effects with the medications and she has been on this combination for an extended period of time and is doing quite well with these. The patient has had appropriate K-TRACS reporting as well as appropriate urinalysis to date. She reports "I think I do well." The patient reports no new motor or sensory deficits. Still pain in the low back and the legs, rates it as a 5 on a scale of 10 at its worst, 5 on average and 4 at its least and is a 5 today. The patient reports it can be sharp and burning at times or aching and dull, worse with walking, standing and weightbearing and better with sitting or lying down. She is using a wheelchair to transport, but most all times reports that she sleeps well through the night and is working on decreasing the amount of caffeine that she is drinking and trying to substitute that with water in the afternoon as this was keeping her awake. The patient reports otherwise is doing well. No new motor or sensory deficits. No new bowel or bladder incontinence or other concerns. PHYSICAL EXAMINATION: VITAL SIGNS: The patient's blood pressure is 115/64, pulse 78, respirations are 16, temperature 97.8 degrees Fahrenheit and weight is 134 pounds. GENERAL: The patient is awake, alert, oriented, appropriate, very pleasant demeanor. HEENT: Head shows normocephalic and atraumatic. Extraocular movements are intact and symmetrical. Oral cavity: Mucous membranes are moist and pink. The patient is wearing eyeglasses. NECK: Shows anterior throat is supple without palpable lymphadenopathy noted. Swallow reflex is symmetrical. CHEST: Shows normal with inspection. Breath sounds are clear to auscultation bilaterally. HEART: Shows S1 and S2 clear. No murmurs are auscultated. ABDOMEN: Soft, nontender and nondistended. No palpable organomegaly is noted. No rebound or guarding demonstrated. BACK: Shows spine grossly in the midline, normal-appearing cervical lordotic curvature, thoracic kyphotic curvature and some flattening of the lumbar lordotic curvature. There is a well-healed surgical scar noted. Lumbar paraspinous muscle shows symmetrical on inspection. On palpation shows some mild tenderness throughout the upper, middle and lower distribution of the paraspinous muscles, but only diffusely without significant radiation. The patient does show good rotational motion of the lumbar spine both laterally about 10 degrees as well as extension 10 degrees and forward flexion 45 degrees without significant increase in pain. EXTREMITIES: The patient's lower extremities show deep tendon reflexes 1+ in the patellar and tendo calcaneus tendons are equal. Motor exam is approximately 4 on a scale of 5, but equal and symmetrical with dorsiflexion and extension bilaterally. Peripheral pulses are 1+ posterior tibial. No peripheral edema is noted bilaterally. Options were discussed with the patient. The patient's old chart was reviewed as was her current medication regimen updated. Current review of systems updated today as well. We will refill the patient's medications of MS Contin at 60 mg plus 15 mg to make it 75 mg total. The patient will have hydrocodone at 10 mg for breakthrough pain p.o. q. 6h. Also Voltaren gel to apply to her leg at bedtime, gabapentin 600 mg at bedtime and Flexeril up to 3 times daily as needed for muscle spasms. The patient was given instruction as well as side effects to be aware of with all the medications. Also, instructions were written out for her assisted living mother house and her nursing staff there and the patient will follow up in approximately 90 days or sooner if necessary. The patient was given instruction as well as side effects to be aware of the medications and followup as scheduled. SASCHA LUND MD DR: HAILEE/milton JOB#: [id number] / [id number]
== END | disposition home or self-care (01) ==
LOC: PNCL 11:28
PROVIDERS: ATTEND Anesthesiology
DX: M54.16 Radiculopathy, lumbar region (principal); M96.1 Postlaminectomy syndrome, not elsewhere classified; G35 Multiple sclerosis; M79.18 Myalgia, other site
CPT/HCPCS: G0463

== ENCOUNTER → 2019-05-27 | Outpatient (CLI) | payer MEDICARE, OTHER ==
--- NOTE | 2019-05-28 07:53 | PAIN ---
DATE OF SERVICE: 05/27/2019 PROGRESS NOTE FOR PAIN CLINIC DIAGNOSES: 1. Multiple sclerosis related pain. 2. Lumbar radiculopathy with post-lumbar laminectomy syndrome. 3. Myofascial pain. HISTORY OF PRESENT ILLNESS: The patient is an 83-year-old female who returns for followup status post medication management including MS Contin and hydrocodone for breakthrough pain, also Flexeril, gabapentin at night and Voltaren gel for her feet at night. The patient reports she had been doing very well on been on fairly stable regimen with the medication thus far. The patient reports she is sleeping better at night and reports no significant pains or side effects at this time. The patient reports no changes. The patient reports her pain is a 5 on a scale of 10 at its worst, 5 on average and a 4 at its least and is a 5 today. The patient reports mostly in the lower extremities where the pain is the worse, sharp, burning, constant, worse with weightbearing and standing, better with sitting or lying down. It generally does not awaken her from sleep at night. The patient reports she can ambulate to the dining room and room to room with good ability without significant pain limiting her to do this. The patient reports no side effects with the medications. No new changes. PHYSICAL EXAMINATION: VITAL SIGNS: The patient's blood pressure is 113/63, pulse 77, respirations 18, temperature 98.3 degrees Fahrenheit. GENERAL: The patient is awake, alert, oriented, appropriate, very pleasant demeanor. The patient is using a wheelchair today. HEENT: Head shows normocephalic, atraumatic. The patient is wearing eyeglasses. Extraocular movements intact and symmetrical. Oral cavity: Mucous membranes are moist and pink. NECK: Shows anterior throat supple without palpable lymphadenopathy noted. Swallow reflex is symmetrical. CHEST: Shows normal on inspection. Breath sounds are clear bilaterally without any rales, rhonchi, or wheezes. HEART: Shows S1, S2 clear. ABDOMEN: Soft, nontender, nondistended. BACK: Shows spine grossly in the midline. Slight exaggeration of thoracic kyphosis and mild flattening of lumbar lordotic curvature. Well-healed surgical scar noted in the lumbar distribution. Once again lumbar paraspinous muscle shows symmetrical, but mildly tender with palpation throughout the upper, middle, and lower distribution of paraspinous muscles. EXTREMITIES: The patient's lower extremities show deep tendon reflexes 1+ in the patellar and tendo-calcaneus tendons are equal. Motor exam is approximately 4 on a scale of 5, but symmetrical with dorsiflexion and extension bilaterally. Peripheral pulses are 1+ posterior tibia. No peripheral edema is noted. Options were discussed with the patient. The patient's old chart was reviewed as her current medication regimen updated. Current review of systems updated today as well. We will refill the patient's medication for a 90-day period. The patient has had appropriate K-TRACS reporting as well as appropriate urinalysis to date and we will refill this for a 90-day period. The patient was given instructions as well as side effects to be aware of each of the medications. We will follow up in approximately 90 days or sooner as necessary. The patient was given a note for her mother's house where she resides reflecting the visit today and the plan for her medications as well. SASCHA LUND MD DR: HAILEE/nts JOB#: [id number] / [id number]
== END | disposition home or self-care (01) ==
LOC: PNCL 11:00
PROVIDERS: ATTEND Anesthesiology
DX: G35 Multiple sclerosis (principal); M54.16 Radiculopathy, lumbar region; M79.18 Myalgia, other site; M96.1 Postlaminectomy syndrome, not elsewhere classified
CPT/HCPCS: G0463

== ENCOUNTER → 2019-08-19 | Outpatient (CLI) | payer MEDICARE, OTHER ==
[~2019-08-19] MED LIST changes: +MORP-15 PO; -MORP15TA3 PO; -MORP60TA PO; +MORP60TA60 PO
--- NOTE | 2019-08-19 12:56 | PAIN ---
DATE OF SERVICE: 08/19/2019 PROGRESS NOTE FOR PAIN CLINIC DIAGNOSES: 1. Multiple sclerosis-related pain. 2. Lumbar radiculopathy with post-lumbar laminectomy syndrome. 3. Myofascial pain. HISTORY OF PRESENT ILLNESS: The patient is an 84-year-old female who returns for followup, status post medication management with both MS Contin, also hydrocodone, Flexeril, Voltaren gel and gabapentin. The patient reports she is doing very well with this very stable regimen. We decreased her MS Contin from 75 mg to 60 mg q.12 hours and she reports doing well with this with no increase in significant pain. The patient reports she is sleeping well at night, has pain in the low back, mainly in the lower extremities. They are using the Voltaren gel on her feet at night, which she reports helps and gets her sleep mostly through the night. She does awaken from sleep occasionally, but only rarely. The patient reports that her pain is a 7 on a scale of 10 at its worst over the past week, 5 on an average and 3 at its least and is a 3 today. The patient reports it is sharp and aching at times in the low back and the legs, but on and off in intensity. The patient reports no new motor or sensory deficits, no new bowel or bladder incontinence or other complaints. PHYSICAL EXAMINATION: VITAL SIGNS: The patient's blood pressure is 116/49, pulse 71, respirations 18, temperature is 98.6 degrees Fahrenheit. GENERAL: The patient is awake, alert, oriented, appropriate, very pleasant demeanor. HEENT: Shows normocephalic, atraumatic. The patient is wearing eyeglasses. Extraocular movements are intact and symmetrical. Oral cavity: Mucous membranes moist and pink. NECK: Shows anterior throat supple. CHEST: Shows normal on inspection. Breath sounds are clear bilaterally. HEART: Shows S1, S2 clear. No murmurs auscultated. ABDOMEN: Soft, nontender, nondistended. BACK: Shows spine grossly in the midline, slight exaggerated thoracic kyphosis, some minor flattening of lumbar lordotic curvature with well-healed surgical scarring noted in the lumbar distribution. Lumbar paraspinous musculature shows symmetrical with inspection, on palpation shows some moderate tenderness, but only diffusely without radiation, throughout the upper, middle and lower distribution of the paraspinous muscles. The patient has good rotational motion of lumbar spine, however, both laterally as well as extension and flexion without increase in pain. EXTREMITIES: Lower extremities show deep tendon reflexes are 1+ in the patellar and tendo-calcaneus tendons. Motor exam is approximately 4 on a scale of 5, but symmetrical with dorsiflexion, extension, quadriceps and hamstring flexion and equal. Peripheral pulses are 1+. No peripheral edema is noted bilaterally. Options were discussed with the patient. The patient's old chart was reviewed as her current medication regimen updated. Current review of systems updated today as well. We will proceed with refill of the patient's medications, MS Contin 60 mg, hydrocodone 10 mg, Flexeril, gabapentin as well as Voltaren gel for a 3-month period. The patient has had appropriate K-TRACS reporting as well as appropriate urinalysis to date. We will refill the medications for a 90-day supply and have her return at that time or sooner as necessary. SASCHA LUND MD DR: HAILEE/nts JOB#: [id number] / [id number]
== END | disposition home or self-care (01) ==
LOC: PNCL 11:30
PROVIDERS: ATTEND Anesthesiology
DX: G35 Multiple sclerosis (principal); M54.16 Radiculopathy, lumbar region; M54.5 Low back pain; M79.18 Myalgia, other site; M96.1 Postlaminectomy syndrome, not elsewhere classified
CPT/HCPCS: G0463

== ENCOUNTER → 2019-11-11 | Outpatient (CLI) | payer MEDICARE, OTHER ==
--- NOTE | 2019-11-11 20:16 | PAIN ---
DATE OF SERVICE: 11/11/2019 PROGRESS NOTE FOR PAIN CLINIC DIAGNOSES: Lumbar radiculopathy with lumbar post-laminectomy syndrome and myofascial pain with multiple sclerosis related pain. HISTORY OF PRESENT ILLNESS: The patient is an 84-year-old female who returns for followup, status post medication management with both MS Contin and hydrocodone. The patient is also taking gabapentin and using Voltaren gel for her feet, which she reports she is doing quite well with. The patient reports she is doing very well on a very stable regimen with the medications. No specific side effects. She is sleeping better at night. Her legs are much less worse at night. The patient reports the pain is a 5 on a scale of 10 at its worst in the past week, 3 on average, 3 at its least, and is a 3 today. The patient reports that it is sharp and cramping at times in the feet and legs, worse at night but again better with the current medication regimen. The patient reports no specific side effects. She reports that it does not generally awaken her from sleep on most nights. The patient reports no new bowel or bladder incontinence or other complaints. No side effects with the medication that she is aware of. PHYSICAL EXAMINATION: VITAL SIGNS: The patient's blood pressure is 132/59, pulse 68, respirations 18, temperature is 97.6 degrees Fahrenheit, and her weight is 173 pounds. GENERAL: The patient is awake, alert, oriented, and appropriate. She has very pleasant demeanor. HEENT: Head is normocephalic and atraumatic. Extraocular movements are intact and symmetrical. Oral cavity shows mucous membranes moist and pink. Dentition is intact. NECK: Anterior throat supple without palpable lymphadenopathy noted. Swallow reflex symmetrical. CHEST: Normal on inspection. Breath sounds are clear to auscultation bilaterally. HEART: S1, S2 clear. No murmurs auscultated. ABDOMEN: Soft, nontender, and nondistended. BACK: Spine grossly in the midline. Normal appearing thoracic kyphosis. Some minor flattening of lumbar lordotic curvature. Lumbar paraspinous muscle shows symmetrical on inspection and on palpation shows some moderate tenderness diffusely bilaterally, but only diffusely without significant radiation. The patient's back shows a well-healed surgical scar in the lumbar distribution. Paraspinous muscles again are moderately tender in the inferior aspect of the lumbar paraspinous muscles, but are symmetrical. The patient has good rotational motion of lumbar spine, both laterally as well as extension and flexion without significant increase in pain. EXTREMITIES: The patient's lower extremities show deep tendon reflexes 1+ in the patellar and tendo calcaneus tendons. Motor exam is approximately 4 on a scale of 5, but symmetrical with dorsiflexion and extension. Peripheral pulses are 1+. No peripheral edema is noted bilaterally. ASSESSMENT AND PLAN: Options were discussed with the patient. The patient's old chart was reviewed as her current medication regimen updated. Current review of systems updated today as well. We will refill the patient's MS Contin q. 12 hours as well as hydrocodone for breakthrough pain, also gabapentin at bedtime, and Voltaren gel at bedtime as well. The patient was given instruction as well as side effects to be aware of with the medications. Also, note was written for the patient's mother house for instructions and update of the progress note as well for her caregivers there. The patient will follow up in approximately 90 days. She has been on very stable regimen and once again has had appropriate K-TRACS reporting as well as appropriate urinalysis. We will have urinalysis taken today as routine screening as well as renew the patient's narcotic contract. The patient was given a copy of this as well. The patient will follow up in approximately 90 days or sooner as necessary. SASCHA LUND MD DR: HAILEE/milton JOB#: [id number] / [id number]
== END | disposition home or self-care (01) ==
LOC: PNCL 11:41
PROVIDERS: ATTEND Anesthesiology
DX: M54.16 Radiculopathy, lumbar region (principal); M96.1 Postlaminectomy syndrome, not elsewhere classified; M79.18 Myalgia, other site; G35 Multiple sclerosis
CPT/HCPCS: G0463

== ENCOUNTER → 2021-05-12 | Outpatient (CLI) | payer MEDICARE, OTHER ==
[~2021-05-12] MED LIST changes: -DICL100G18 TP; +DICL100G54 TP; +LISI10TA16 PO; -LISI10TA2 PO; +MORP60TA37 PO
--- NOTE | 2021-05-12 09:22 | PDOC ---
Progress Note - Pain Clinic Date of Service: DOS: DATE: 05/12/21 TIME: 09:17 Diagnosis: Dx: Multiple sclerosis related pain Lumbar radiculopathy with lumbar postlaminectomy syndrome Myofascial pain History or Present Illness: HPI: 85-year-old female returns for follow-up status post medication management with MS Contin hydrocodone and also Voltaren gel and gabapentin. Patient reports has been doing very well with this and is been sleeping well at night pain in her feet is well controlled at night by her report some pain in the back which causes significant aching is still present and comes and goes without any persistent predictability but patient reports for the most part she is sleeping fairly well at night about 8 hours does not generally disturb her sleep. Patient reports her pain is burning and cramping at times in the low back mainly in the feet at night but again better with Voltaren gel. Patient reports no new motor or sensory deficits no significant side effects with the medications reports approximately 75% improvement with the medications and again without significant side effects. Patient rates pain is a 9 on scale 10 is worse over the past week 7 on average 4 to sleep and is a 4 today. Patient reports that sleeping on her side is much more comfortable and on her back and she gets fairly good sleep in this position. Physical Exam: VS: Blood pressure is 115/42 pulse 66 respirations are 18 temperature 97.8 F height is 5 feet 2 inches weight is 135 pounds PE: PHYSICAL EXAMINATION: GENERAL: The patient is awake, alert, oriented, appropriate, very pleasant in demeanor. Patient sitting upright in her wheelchair HEENT: Shows normocephalic, atraumatic. Extraocular movements are intact and symmetrical. Oral cavity: Mucous membranes moist and pink. NECK: Shows anterior throat supple without palpable lymphadenopathy noted. Swallow reflex symmetrical. CHEST: Shows normal on inspection. Breath sounds are clear bilaterally. HEART: Shows S1, S2 clear. No murmurs auscultated. ABDOMEN: Soft, nontender, nondistended. BACK: Shows spine grossly in the midline. Normal-appearing cervical lordotic curvature. There is increased thoracic kyphosis, some scoliosis noted, some flattening of the lumbar lordotic curvature. Well-healed surgical scar is noted in the lumbar distribution. Lumbar paraspinous muscles show symmetrical on inspection, on palpation shows some moderate tenderness diffusely throughout the upper, middle and lower distribution of the paraspinous muscles without specific trigger points, without radiation of pain. The patient has good rotational motion of the lumbar spine, both laterally as well as extension and flexion without significant difficulty. No tenderness over the spinous processes, sacrum or sacroiliac regions. EXTREMITIES: Lower extremities show deep tendon reflexes 1+ in the patellar and tendo calcaneus tendons. Motor exam is 4 on a scale of 5 with right dorsiflexion, extension, quadriceps and hamstring flexion and 4/5 on the left. Peripheral pulses are 1 posterior tibial. No peripheral edema is noted bilaterally. Lower extremities are warm and dry to touch, equal in color and appearance. SKIN: Shows warm and dry, good turgor. No edema. No sores, rashes or bruising throughout. Procedure: Procedure: Options were discussed with the patient. Patient's old chart was reviewed as her current medication regimen updated current review of systems updated today as well. We will refill patient's medication today as she has had appropriate K tracks report as well as appropriate urinalyses to date. Patient given new prescription for MS Contin as well as hydrocodone electronically prescribed, also new prescriptions for Voltaren and gabapentin. Patient was given instr uctions well side effects aware of each of the medications as was her caregiver present today. Note was given to the mother house as well regarding patient's medications and instructions. Patient will follow up in approximate 2 months or sooner if necessary. Medication Injected: Med Injected: None Condition at Discharge: Condition at Discharge: Condition at discharge is stable. SASCHA LUND MD May 12, 2021 09:22
== END | disposition home or self-care (01) ==
LOC: PNCL 08:32
PROVIDERS: ATTEND Anesthesiology
DX: M54.16 Radiculopathy, lumbar region (principal); M96.1 Postlaminectomy syndrome, not elsewhere classified; M79.18 Myalgia, other site; M81.0 Age-related osteoporosis without current pathological fracture; Z88.2 Allergy status to sulfonamides; G35 Multiple sclerosis; Z79.899 Other long term (current) drug therapy; Z88.8 Allergy status to other drugs, medicaments and biological substances
CPT/HCPCS: 99212; G0463

== ENCOUNTER → 2021-07-07 | Outpatient (CLI) | payer MEDICARE, OTHER ==
--- NOTE | 2021-07-07 09:50 | PDOC ---
Progress Note - Pain Clinic Date of Service: DOS: DATE: 07/07/21 TIME: 09:46 Diagnosis: Dx: Multiple sclerosis related pain Lumbar radiculopathy with lumbar postlaminectomy syndrome History or Present Illness: HPI: 85-year-old female returns for follow-up status post medication management with MS Contin hydrocodone Voltaren gel and gabapentin. Patient reports she is doing fairly stable on this with estimated about 70 to 75% improvement patient reports that is mostly worse at night and occasionally wakes her from sleep but not every night but she is able to get back to sleep by taking some pain medication or changing positions. Patient still using Voltaren gel for her feet at night which she reports helps also of the medication management with the MS Contin and hydrocodone doing well without significant side effects. Patient reports her pain is a 9 on scale 10 is worse over the past week 7 on average 3 its least and is a 3 today. Patient reports no new motor or sensory deficits no new bowel or bladder incontinence no new side effects with the medication. Patient has had appropriate K tracks report as well as appropriate urinalyses to date. Physical Exam: VS: Blood pressure is 114/40 pulse 67 respirations 18 temperature 97.6 F height 5 feet 2 inches weight 126 pounds PE: PHYSICAL EXAMINATION: GENERAL: The patient is awake, alert, oriented, appropriate, very pleasant in demeanor, patient using a wheelchair. HEENT: Shows normocephalic, atraumatic. Extraocular movements are intact and symmetrical. Patient wearing eyeglasses oral cavity: Mucous membranes moist and pink. NECK: Shows anterior throat supple without palpable lymphadenopathy noted. Swallow reflex symmetrical. CHEST: Shows normal on inspection. Breath sounds are clear bilaterally. HEART: Shows S1, S2 clear. No murmurs auscultated. ABDOMEN: Soft, nontender, nondistended. No palpable organomegaly is noted. No rebound or guarding demonstrated. BACK: Shows spine grossly in the midline. Normal-appearing cervical lordotic curvature. There is increased thoracic kyphosis, some flattening of the lumbar lordotic curvature. Well-healed surgical scar is noted in the midline. Lumbar paraspinous muscles show symmetrical on inspection, on palpation shows some moderate tenderness diffusely throughout the upper, middle and lower distribution of the paraspinous muscles without specific trigger points, without radiation of pain. The patient has good rotational motion of the lumbar spine, both laterally as well as extension and flexion without significant difficulty. EXTREMITIES: Lower extremities show deep tendon reflexes 1+ in the patellar and tendo calcaneus tendons. Motor exam is 4 on a scale of 5 with right dorsiflexion, extension, quadriceps and hamstring flexion and 4/5 on the left. Peripheral pulses are 1+ posterior tibial. No peripheral edema is noted bilaterally. Lower extremities are warm and dry. SKIN: Shows warm and dry, good turgor. No edema. No sores, rashes or bruising throughout. Procedure: Procedure: Options were discussed with the patient. Patient chart was reviewed as her current medication regimen updated current review of systems updated today as well. We will refill patient's MS Contin as well as hydrocodone also gabapentin and Voltaren gel patient was given instructions well side effects aware of each of the medications. Patient's caregiver was present today as well and we discussed the plan with her pain medications as well. Patient will have these electronically prescribed and will follow up in approximately 1 month for refill via telemedicine at that time. Medication Injected: Med Injected: None Condition at Discharge: Condition at Discharge: Condition at discharge is stable. SASCHA LUND MD Jul 07, 2021 09:50
== END | disposition home or self-care (01) ==
LOC: PNCL 09:02
PROVIDERS: ATTEND Anesthesiology
DX: M54.16 Radiculopathy, lumbar region (principal); M96.1 Postlaminectomy syndrome, not elsewhere classified; G35 Multiple sclerosis; Z79.899 Other long term (current) drug therapy; Z88.0 Allergy status to penicillin; Z88.8 Allergy status to other drugs, medicaments and biological substances
CPT/HCPCS: 99212; G0463

== ENCOUNTER → 2021-08-29 | Outpatient (CLI) | payer MEDICARE, OTHER ==
[~2021-08-29] MED LIST changes: +CYCL10TA19 PO; -CYCL10TA2 PO; +FENT1PAT17 TP; +LEVO100T5 PO
--- NOTE | 2021-08-29 09:46 | PDOC ---
Progress Note - Pain Clinic Date of Service: DOS: DATE: 08/29/21 TIME: 09:43 Diagnosis: Dx: Multiple sclerosis related pain Lumbar radiculopathy with lumbar postlaminectomy syndrome Myofascial pain History or Present Illness: HPI: 86-year-old female returns for follow-up status post medication management with both MS Contin as well as hydrocodone also Voltaren gel and gabapentin. Patient reports she is doing very well is been a very stable regimen with approximately 70 to 75% improvement in the pain by her estimation. Patient reports she sleeps better most nights and does not remember to put the gel on her feet most nights but when she does it does help patient reports a 9 on scale 10 is worst this past week 6 on average 3 at its least and her pain is a 6 today. Patient reports that sharp and aching in the low back and legs also in the feet on and off in intensity but fairly well controlled with the current medication regimen that she is taking. Patient reports no specific side effects once again patient has had appropriate K tracks reporting as well as appropriate urinalyses to date. Patient reports that she is staying busy doing word puzzles as well as enjoying watching football games on TV and she is usually in a wheelchair when she needs to ambulate and get around which she is in today as well. Patient reports no new deficits no bowel or bladder incontinence. Physical Exam: VS: Blood pressure is 103/45 pulse 76 respirations 16 temperature 98.2 F height is 5 feet 2 inches PE: PHYSICAL EXAMINATION: GENERAL: The patient is awake, alert, oriented, appropriate, very pleasant in demeanor HEENT: Shows normocephalic, atraumatic. Extraocular movements are intact and symmetrical. Patient wearing eyeglasses. Oral cavity: Mucous membranes moist and pink. NECK: Shows anterior throat supple without palpable lymphadenopathy noted. Swallow reflex symmetrical. CHEST: Shows normal on inspection. Breath sounds are clear bilaterally, distant but no rales or rhonchi. HEART: Shows S1, S2 clear. No murmurs auscultated. ABDOMEN: Soft, nontender, nondistended. No palpable organomegaly is noted. BACK: Shows spine grossly in the midline. Normal-appearing cervical lordotic curvature. There is slightly increased thoracic kyphosis, some minor flattening of the lumbar lordotic curvature. Lumbar paraspinous muscles show symmetrical on inspection, on palpation shows some moderate tenderness diffusely throughout the upper, middle and lower distribution of the paraspinous muscles without specific trigger points, without radiation of pain. The patient has good rotational motion of the lumbar spine, both laterally as well as extension and flexion without significant difficulty. EXTREMITIES: Lower extremities show deep tendon reflexes 1+ in the patellar and tendo calcaneus tendons. Motor exam is 4 on a scale of 5 with right dorsiflexion, extension, quadriceps and hamstring flexion and []/5 on the left. Peripheral pulses are 1+ posterior tibial. No peripheral edema is noted bilaterally. Lower extremities are warm and dry. SKIN: Shows warm and dry, good turgor. No edema. No sores, rashes or bruising throughout. Procedure: Procedure: Procedure discussed with the patient. Patient chart reviews her current medication regimen updated current review of systems updated today as well. We will refill patient's medication MSO 4 and hydrocodone as well as Voltaren gel and gabapentin with instructions side effects aware discussed with the each of the medications. These were discussed with patient's care provider who accompanied her to visit today as well. Patient has had appropriate K tracks reporting as well as appropriate urinalyses to date and we will make this a 1 month prescription. Patient to follow-up in approximate 4 weeks as scheduled. Medication Injected: Med Injected: None Condition at Discharge: Condition at Discharge: Condition at discharge is stable. SASCHA LUND MD Aug 29, 2021 09:46
== END | disposition home or self-care (01) ==
LOC: PNCL 09:03
PROVIDERS: ATTEND Anesthesiology
DX: M54.16 Radiculopathy, lumbar region (principal); M96.1 Postlaminectomy syndrome, not elsewhere classified; G35 Multiple sclerosis; M79.18 Myalgia, other site; Z79.899 Other long term (current) drug therapy; Z88.8 Allergy status to other drugs, medicaments and biological substances
CPT/HCPCS: 99212; G0463